=== PATIENT | female | born 1990 | race African-American/Black ===

== ENCOUNTER 2017-12-06 13:18 | Emergency (ER) | payer OTHER ==
[~2017-12-06] VITALS: Ht 172.7 cm; Wt 86.2 kg
[~2017-12-06 13:18] MED LIST: MACROBID 100 M100 M1 PO; NAPROSYN500 MG PO; NORCO 5-325 TA1 EACH PO; NORFLEX100 MG PO
[2017-12-06] MEDS ORDERED: MOBIC7.5 MG PO (13:33)
[2017-12-06] MEDS ORDERED: PENICILLIN VK500 M1 PO (13:33)
== END 2017-12-06 14:07 ==
LOC: ER 13:18
DX: J02.0 Streptococcal pharyngitis (principal)

== ENCOUNTER 2017-12-13 10:20 | Emergency (ER) | payer OTHER ==
[~2017-12-13] VITALS: Ht 162.6 cm; Wt 95.3 kg
[~2017-12-13 10:20] MED LIST changes: +MOBIC7.5 MG PO; +PENICILLIN VK500 M1 PO
[2017-12-13 10:45] LABS: URINE BILIRUBIN NEGATIVE (Negative); URINE BLOOD NEGATIVE (Negative); URINE CLARITY CLEAR; URINE COLOR YELLOW; URINE GLUCOSE-RANDOM* NEGATIVE (Negative); URINE KETONES NEGATIVE (Negative); URINE NITRITE-REFLEX NEGATIVE (Negative); URINE PROTEIN (DIPSTICK) NEGATIVE (Negative); URINE UROBILINOGEN 0.2 E.U./dl (0.2-1.0)
[2017-12-13 10:46] LABS: URINE LEUKOCYTES-REFLEX 1+ (Negative)
[2017-12-13 10:58] LABS: CASTS None Seen /LPF (None Seen); CRYSTALS None Seen /LPF (None Seen); SQUAMOUS 4-10 Moderate /LPF (0-3)
[2017-12-13 11:00] LABS: BACTERIA-REFLEX 1-9 Few /HPF (None Seen); URINE RBC None Seen /HPF (0-2); URINE WBC-REFLEX 0-5 Rare /HPF (0-5); YEAST-REFLEX Present (None Seen)
[2017-12-13] MEDS ORDERED: METFORMIN HCL500 MG PO (11:08)
[2017-12-13] MEDS ORDERED: DIFLUCAN200 MG PO (12:40)
[2017-12-13] MEDS ORDERED: VAGICAINE CREAM28 GM TOP (12:40)
[2017-12-13] MEDS ORDERED: MACROBID 100 M100 M1 PO (12:40)
== END 2017-12-13 12:59 | disposition home or self-care (01) ==
LOC: ER 10:20
PROVIDERS: Physician Assistant
DX: N39.0 Urinary tract infection, site not specified (principal); B37.9 Candidiasis, unspecified; E11.9 Type 2 diabetes mellitus without complications

== ENCOUNTER 2019-12-20 16:09 | Emergency (ER) | payer OTHER ==
[~2019-12-20] VITALS: Ht 162.6 cm; Wt 83.9 kg
[~2019-12-20 16:09] MED LIST changes: +DIFLUCAN200 MG PO; +METFORMIN HCL500 MG PO; +VAGICAINE CREAM28 GM TOP
[2019-12-20 16:34] LABS: URINE BILIRUBIN NEGATIVE (Negative); URINE BLOOD 3+ (Negative); URINE CLARITY CLOUDY; URINE COLOR YELLOW; URINE GLUCOSE-RANDOM* NEGATIVE (Negative); URINE KETONES TRACE (Negative); URINE LEUKOCYTES-REFLEX 2+ (Negative); URINE NITRITE-REFLEX NEGATIVE (Negative); URINE PROTEIN (DIPSTICK) TRACE (Negative); URINE SPECIFIC GRAVITY >= 1.030 (1.005-1.035); URINE UROBILINOGEN 0.2 E.U./dl (0.2-1.0)
[2019-12-20 16:41] LABS: SQUAMOUS >10 Many /LPF (0-3); YEAST-REFLEX Present (None Seen)
[2019-12-20 16:42] LABS: BACTERIA-REFLEX >30 Many /HPF (None Seen)
[2019-12-20 16:45] LABS: CASTS None Seen /LPF (None Seen); CRYSTALS None Seen /LPF (None Seen)
[2019-12-20] MEDS ORDERED: FLAGYL500 M1 PO (17:22)
[2019-12-20] MEDS ORDERED: DIFLUCAN150 MG PO (17:22)
[2019-12-20 17:33] VITALS: BP 139/91
== END 2019-12-20 17:37 | disposition home or self-care (01) ==
LOC: ER 16:09
PROVIDERS: Physician Assistant
DX: N76.0 Acute vaginitis (principal); E11.9 Type 2 diabetes mellitus without complications

== ENCOUNTER 2020-05-04 15:50 | Emergency (ER) | payer OTHER ==
[~2020-05-04] VITALS: Ht 162.6 cm; Wt 83.9 kg
[~2020-05-04 15:50] MED LIST changes: +DIFLUCAN150 MG PO; +FLAGYL500 M1 PO
[2020-05-04 16:31] LABS: URINE BILIRUBIN NEGATIVE (Negative); URINE BLOOD TRACE (Negative); URINE CLARITY CLOUDY; URINE COLOR YELLOW; URINE GLUCOSE-RANDOM* NEGATIVE (Negative); URINE KETONES NEGATIVE (Negative); URINE NITRITE-REFLEX NEGATIVE (Negative); URINE PROTEIN (DIPSTICK) TRACE (Negative); URINE UROBILINOGEN 0.2 E.U./dl (0.2-1.0)
[2020-05-04 16:35] LABS: URINE LEUKOCYTES-REFLEX 1+ (Negative)
[2020-05-04 17:09] LABS: CASTS None Seen /LPF (None Seen); SQUAMOUS >10 Many /LPF (0-3); URINE RBC 0-2 Rare /HPF (0-2); URINE WBC-REFLEX 6-15 Few /HPF (0-5)
[2020-05-04 17:10] LABS: BACTERIA-REFLEX 1-9 Few /HPF (None Seen); CRYSTALS None Seen /LPF (None Seen)
[2020-05-04] MEDS ORDERED: FLAGYL500 M1 PO (17:55)
[2020-05-04 17:58] VITALS: BP 129/95
== END 2020-05-04 17:58 | disposition home or self-care (01) ==
LOC: ER 15:50
PROVIDERS: Emergency Medicine
DX: A59.01 Trichomonal vulvovaginitis (principal)

== ENCOUNTER 2020-11-27 13:01 | Emergency (ER) | payer OTHER ==
[~2020-11-27] VITALS: Ht 162.6 cm; Wt 84.4 kg
[2020-11-27] MEDS ORDERED: PREDNISONE 20 M20 MG PO (14:49)
[2020-11-27] MEDS ORDERED: HYDROCODON-ACE1 EAC7 PO (14:49)
[2020-11-27 15:13] VITALS: BP 130/87
== END 2020-11-27 15:14 | disposition home or self-care (01) ==
LOC: ER 13:01
DX: G56.02 Carpal tunnel syndrome, left upper limb (principal); Z79.899 Other long term (current) drug therapy